=== PATIENT | male | born 1935 | race Caucasian/White ===

== ENCOUNTER → 2016-11-21 | Outpatient (CLI) | payer OTHER | LOC: BMCIMAGING 10:07 | PROVIDERS: ATTEND Orthopaedic Surgery | DX: M25.551 Pain in right hip (principal) ==

== ENCOUNTER → 2017-01-08 | Outpatient (CLI) | payer OTHER | LOC: FIMAGING 06:55 | PROVIDERS: ATTEND Physical Medicine & Rehabilitation | DX: M48.062 Spinal stenosis, lumbar region with neurogenic claudication (principal); M51.36 Other intervertebral disc degeneration, lumbar region; M46.96 Unspecified inflammatory spondylopathy, lumbar region ==

== ENCOUNTER 2017-07-19 20:59 | Emergency (ER) | payer OTHER ==
[2017-07-19 21:06] VITALS: BP 138/85
--- NOTE | 2017-07-19 21:09 | EDPHY ---
H & P Stated Complaint: tripped and fell down 3 stairs, left elbow and right knee pain Time Seen by Provider: 07/19/17 21:09 HPI/ROS: CHIEF COMPLAINT: Left elbow pain and forearm pain following mechanical fall HISTORY OF PRESENT ILLNESS: The patient presents to the ED with complaints of left elbow and forearm pain following a mechanical fall at home. The patient is anticoagulated for atrial fibrillation but denies striking his head or losing consciousness. The patient did sustain a small abrasion to his right knee but has been ambulatory and has no limited range of motion or significant pain. The patient denies any complaints of associated back pain, numbness, weakness, antecedent chest pain, palpitations or recent medical illness. The patient reports moderate pain which is worsened with movement. REVIEW OF SYSTEMS: A comprehensive 10 point review of systems is otherwise negative aside from elements mentioned in the history of present illness. Source: Patient Exam Limitations: No limitations - Personal History Current Tetanus Diphtheria and Acellular Pertussis (TDAP): No - Medical/Surgical History Hx Asthma: No Hx Chronic Respiratory Disease: No Hx Diabetes: No Hx Cardiac Disease: Yes Hx Renal Disease: No Hx Cirrhosis: No Hx Alcoholism: No Hx HIV/AIDS: No Hx Splenectomy or Spleen Trauma: No Other PMH: prostatectomy, face reconstruction, pacemaker, afib, ablation, chronic fatigue - Social History Smoking Status: Never smoked - Physical Exam Exam: General Appearance: Alert, no distress Head: Atraumatic Eyes: Pupils equal, round, reactive ENT, Mouth: No hemotympanum, no oral trauma Neck: Nontender, trachea midline Respiratory: No chest wall tender, subcutaneous air, lungs clear bilaterally Cardiovascular: Regular rate and rhythm Abdomen: Abdomen is soft and nontender, pelvis stable Skin: Superficial abrasion to right knee cap Back: No midline T/L/S pain Extremities: Tenderness to palpation left elbow over the radial head and proximal ulna/humerus Neurological: A&Ox3, normal motor function, normal sensory exam Constitutional: Initial Vital Signs Temperature (C) 37.1 C 07/19/17 21:03 Heart Rate 80 07/19/17 21:03 Respiratory Rate 16 07/19/17 21:03 Blood Pressure 138/85 H 07/19/17 21:03 O2 Sat (%) 95 07/19/17 21:03 O2 Delivery Mode Room Air Allergies/Adverse Reactions: No Known Allergies Allergy (Verified 11/28/15 11:15) Home Medications: Medication Instructions Recorded Levothyroxine [Synthroid 75 mcg 75 mcg PO DAILY06 05/08/12 (RX)] Multivitamins [Tab-A-Matthew] 1 each PO DAILY 05/08/12 Pravastatin Sodium 40 mg PO DAILY 05/08/12 Warfarin Sodium [Coumadin 2.5MG 2.5 mg PO TUTH 05/08/12 (RX)] Warfarin Sodium [Jantoven] 5 mg PO SUMOWEFRSA 05/08/12 celeCOXIB [Celebrex] 200 mg PO DAILY 05/08/12 Medical Decision Making - Diagnostics Imaging Results: Imaging Impressions Elbow X-Ray 07/19/17 21:06 Impression: No acute osseous findings. Left forearm x-ray: Images reviewed by myself, negative for acute fracture dislocation. ED Course/Re-evaluation: The patient has no evidence of a closed head injury. There are no external signs of head trauma. I have cleared his cervical spine clinically. X-ray of the left elbow and forearm was ordered which demonstrate no evidence of an obvious fracture. The patient has been placed in a sling. He will be advised to follow up with our on-call orthopedic surgeon for any persistent pain, swelling, decreased range of motion past 3-5 days as this may be the sign of an injury not noted on the x-ray today. Differential Diagnosis: Differential diagnosis considered includes fracture, sprain, dislocation, neurovascular injury - Data Points Medications Given: Discontinued Medications Tramadol HCl (Ultram) 50 mg PO EDNOW ONE Stop: 07/19/17 21:16 Last Admin: 07/19/17 21:23 Dose: 50 mg Departure - Departure Disposition: Home, Routine, Self-Care Clinical Impression: Sprain of elbow, left Condition: Good Instructions: Elbow Sprain (ED) Additional Instructions: 1. Take Ibuprofen or Motrin 600 mg by mouth three times a day. 2. Tramadol as needed for severe pain 3. Your x-rays demonstrate no obvious fracture. Please follow up with the orthopedic surgeon you have been referred to for any pain, swelling or decreased range of motion which persists past 3-5 days from your initial injury. This may be the sign of a injury not noted on the x-ray today. Referrals: WILDER MORLEY [Primary Care Provider] - As per Instructions Salazar Cook MD [Medical Doctor] - As per Instructions
[2017-07-19] MEDS ORDERED: traMADol 50 MG TAB PO ONE (21:15)
== END 2017-07-19 22:03 | disposition home or self-care (01) ==
DX: S53.402A Unspecified sprain of left elbow, initial encounter (principal); Z79.01 Long term (current) use of anticoagulants; Z95.0 Presence of cardiac pacemaker; W18.39XA Other fall on same level, initial encounter; Y92.009 Unspecified place in unspecified non-institutional (private) residence as the place of occurrence of the external cause
CPT/HCPCS: 73080; 73090; 99283; A4565